=== PATIENT | female | born 1945 | race Caucasian/White ===

== ENCOUNTER 2016-03-27 14:01 | Outpatient (CLI) | payer OTHER | END 2016-03-27 19:27 | disposition home or self-care (01) | LOC: SMA 14:01 | PROVIDERS: ATTEND Internal Medicine | DX: Z12.31 Encounter for screening mammogram for malignant neoplasm of breast (principal) | CPT/HCPCS: 77067; G0202 ==

== ENCOUNTER 2017-05-04 13:17 | Outpatient (CLI) | payer OTHER | END 2017-05-04 19:56 | disposition home or self-care (01) | LOC: SMA 13:17 | PROVIDERS: ATTEND Internal Medicine | DX: Z12.31 Encounter for screening mammogram for malignant neoplasm of breast (principal) | CPT/HCPCS: 77067 ==

== ENCOUNTER 2017-05-15 13:17 | Outpatient (CLI) | payer OTHER | END 2017-05-15 15:00 | disposition home or self-care (01) | LOC: SMA 13:17 | PROVIDERS: ATTEND Internal Medicine | DX: R92.8 Other abnormal and inconclusive findings on diagnostic imaging of breast (principal) | CPT/HCPCS: 76642; 77065 ==

== ENCOUNTER 2018-05-17 10:37 | Outpatient (CLI) | payer OTHER | END 2018-05-17 21:20 | disposition home or self-care (01) | LOC: SMA 10:37 | PROVIDERS: ATTEND Internal Medicine | DX: Z12.31 Encounter for screening mammogram for malignant neoplasm of breast (principal) | CPT/HCPCS: 77067 ==

== ENCOUNTER 2018-06-02 10:24 | Outpatient (CLI) | payer OTHER | END 2018-06-02 20:39 | disposition home or self-care (01) | LOC: SMA 10:24 | DX: R92.2 Inconclusive mammogram (principal) | CPT/HCPCS: 77065 ==

== ENCOUNTER 2019-11-09 11:02 | Outpatient (CLI) | payer OTHER | END 2019-11-09 17:00 | disposition home or self-care (01) | LOC: SMA 11:02 | DX: R92.2 Inconclusive mammogram (principal) | CPT/HCPCS: 77066 ==

== ENCOUNTER 2020-12-10 13:54 | Outpatient (CLI) | payer OTHER | END 2020-12-10 20:12 | disposition home or self-care (01) | LOC: SMA 13:54 | PROVIDERS: ATTEND Internal Medicine | DX: Z12.31 Encounter for screening mammogram for malignant neoplasm of breast (principal); N64.89 Other specified disorders of breast | CPT/HCPCS: 77067 ==

== ENCOUNTER 2023-12-16 13:38 | Outpatient (CLI) | payer OTHER | END 2023-12-16 19:01 | disposition home or self-care (01) | LOC: SMA 13:38 | PROVIDERS: ATTEND Internal Medicine | DX: Z12.31 Encounter for screening mammogram for malignant neoplasm of breast (principal); R92.333 Mammographic heterogeneous density, bilateral breasts; R92.1 Mammographic calcification found on diagnostic imaging of breast | CPT/HCPCS: 77067 ==